=== PATIENT | female | born 1970 | race Caucasian/White ===

== ENCOUNTER 2017-09-09 13:04 | Emergency (ER) | payer BC ==
[~2017-09-09] VITALS: Ht 175.3 cm; Wt 90.9 kg
[~2017-09-09 13:04] MED LIST: AMOXICILLIN 8751 TAB PO
[2017-09-09 13:07] VITALS: BP 121/66; PULSE 89; TEMP 98.8
== END 2017-09-09 13:41 | disposition left against medical advice (07) ==
LOC: COL.ER 13:04
DX: R10.9 Unspecified abdominal pain (principal)

== ENCOUNTER → 2017-09-17 | Outpatient (CLI) | payer BC | LOC: COL.RAD 10:28 | DX: N88.4 Hypertrophic elongation of cervix uteri (principal) ==

== ENCOUNTER → 2020-07-04 | Outpatient (CLI) | payer BC | LOC: ZCOL.LAB 15:35 | DX: Z20.828 Contact with and (suspected) exposure to other viral communicable diseases (principal) ==